=== PATIENT | female | born 1945 | race African-American/Black ===

== ENCOUNTER 2020-02-15 05:54 | Day surgery (SDC) | payer MEDICARE, OTHER ==
--- NOTE | 2020-02-12 13:00 | Pre-op HX & Phy Repo 2 SIG ---
DATE OF ADMISSION: 02/15/2020 PREOPERATIVE DIAGNOSIS: Macular hole , Stage IV, left eye. BRIEF NOTE: This is a first [facility] ophthalmology admission for the patient, who is a pleasant 74-year-old lady, who complained of blurred vision in the left eye since December and was found to have a stage IV macular hole. PAST OCULAR HISTORY: Remarkable for mild cataracts, but no prior surgery. MEDICAL HISTORY: Remarkable for hypertension and arthritis. MEDICATIONS: She is on metformin and losartan. There was a suspicion of prediabetes. FAMILY HISTORY: Positive for hypertension and diabetes. SOCIAL HISTORY: She does not smoke or drink. ALLERGIES: She is allergic to codeine. PHYSICAL EXAMINATION: Best vision at the time of admission was 20/25 in the right eye. Counting fingers at 6 feet in the left with pressures of 12 bilaterally. The anterior segments showed early nuclear cataracts. Fundus examination of the right eye showed a few macular drusen, but the retina was all attached. The left fundus showed a stage IV macular hole as well as scattered drusen. Diagnostic studies revealed the stage IV macular hole. ASSESSMENT: Stage IV macular hole, left eye. PLAN: The plan is to perform a pars plana vitrectomy with ICG-assisted membrane peeling, possible endolaser, and gas fluid exchange. The risks and benefits of surgery were gone over with the patient with potential for infection, cataract formation, hemorrhage, retinal detachment, failure of the macular hole to close, remote possibility of loss of the eye. The risk of anesthesia was discussed. The patient understands and consents to the surgery, which will be performed on Saturday. Shantanu Fisher M.D. DR: ARISTIDES JOB#: [id number] CC: PILLO
[2020-02-15] VITALS (11 sets, daily range): BP systolic 144–179; BP diastolic 66–88
[~2020-02-15] VITALS: Ht 160 cm; Wt 113.4 kg
[2020-02-15] MEDS ORDERED: prednisoLONE acetate 1% Opth Susp 1ml LEFT EYE ONE (06:00)
[2020-02-15] MEDS: Phenylephrine 2.5% Op 2ml Soln LEFT EYE SCH ×3 (06:17→06:34)
[2020-02-15] MEDS: Flurbiprofen 0.03% Opth Sol 2.5ml LEFT EYE SCH ×3 (06:17→06:34)
[2020-02-15] MEDS: Vigamox Opth Soln 3ml LEFT EYE SCH ×3 (06:17→06:34)
[2020-02-15] MEDS: Cyclopentolate 1% Opth Sol 2ml LEFT EYE SCH ×3 (06:18→06:34)
[2020-02-15] MEDS ORDERED: LOSARTAN POTASS50 MG ORAL (06:37)
[2020-02-15] MEDS ORDERED: EPINEPHrine 1mg/1ml Amp ONE (07:08)
[2020-02-15] MEDS ORDERED: Kenalog-10 5ml Inj ONE (07:09)
[2020-02-15] MEDS ORDERED: BSS 15ml BTL ONE (07:09)
[2020-02-15] MEDS ORDERED: Kenalog-40 1ml Vial ONE (07:09)
[2020-02-15] MEDS ORDERED: Maxitrol Opth Oint 3.5gm ONE (07:09)
[2020-02-15] MEDS ORDERED: BSS 500ml btl ONE (07:09)
[2020-02-15] MEDS ORDERED: Lidocaine 2% MPF 5ml Vial INJ ONE (07:09)
[2020-02-15] MEDS ORDERED: prednisoLONE acetate 1% Opth Susp 1ml ONE (07:09)
[2020-02-15] MEDS ORDERED: Sodium Hyaluronate 10 mg/ml 0.85ml ONE (07:10)
[2020-02-15] MEDS ORDERED: Tetracaine 0.5% Opth 4ml Soln ONE (07:10)
[2020-02-15] MEDS ORDERED: Povidone-Iodine 5% opth solution ONE (07:10)
[2020-02-15] MEDS ORDERED: Bupivacaine 0.75% 30ml vial INJ ONE (07:10)
[2020-02-15] MEDS ORDERED: Lidocaine 1% MPF 10mg/ml 5ml ONE (07:11)
[2020-02-15] MEDS ORDERED: Meperidine 25mg/1ml Inj (FOR RIGORS ONLY) IV PRN (07:15)
[2020-02-15] MEDS ORDERED: LORazepam Inj 2mg/ml 1ml IV PRN (07:15)
[2020-02-15] MEDS ORDERED: fentaNYL 100 mcg/2 mL IV PRN (07:15)
[2020-02-15] MEDS ORDERED: Ketorolac 30mg Inj IV PRN ×2 (07:15)
[2020-02-15] MEDS ORDERED: LR 1000ml 1,000 ML IVLG SCH (07:15)
[2020-02-15] MEDS ORDERED: Midazolam 2mg/2ml Inj IVP PRN (07:15)
[2020-02-15] MEDS ORDERED: Metoclopramide 10mg/2ml Inj IVP PRN (07:15)
[2020-02-15] MEDS ORDERED: Atropine Sulfate 0.4mg/ml inj IVP PRN (07:15)
[2020-02-15] MEDS ORDERED: DiphenhydrAMINE 50mg/ml Inj IVP PRN (07:15)
[2020-02-15] MEDS ORDERED: Labetalol 5mg/ml 20ml vial IV PRN (07:15)
[2020-02-15] MEDS ORDERED: LR 1000ml ONE (07:19)
[2020-02-15] MEDS ORDERED: Hyaluronidase 150 units/ml vial ONE (07:22)
--- NOTE | 2020-02-15 07:26 | Anethesia Preoperative Eval ---
Anesthesia Pre-op PMH/ROS General Date of Evaluation: Feb 15, 2020 Time of Evaluation: 07:19 Anesthesiologist: Sacha ASA Score: ASA 3 Mallampati Score Class I : Soft palate, uvula, fauces, pillars visible Class II: Soft palate, uvula, fauces visible Class III: Soft palate, base of uvula visible Class IV: Only hard plate visible Mallampati Classification: Class III Surgeon: Phillip Diagnosis: L Eye Mcular Hole Surgical Procedure: L Vitrectomy Anesthesia History: none Family History: no anesthesia problems Allergies: Coded Allergies: CODEINE (Verified Allergy, Unknown, 02/12/20) Medications: see eMAR Patient NPO?: Yes Past Medical History Cardiovascular: Reports: HTN Gastrointestinal/Genitourinary: Reports: GERD HEENT: Reports: cataract (L), cataract (R) Other: obesity - orbid BMI 46 Anesthesia Pre-op Phys. Exam Physician Exam Last Vital Signs Date Time Temp Pulse Resp B/P (MAP) Pulse Ox O2 Delivery O2 Flow Rate FiO2 02/15/20 06:23 Room Air 02/15/20 06:23 96.6 77 18 179/75 100 Constitutional: NAD Neurologic: CN 2-12 intact Cardiovascular: RRR Respiratory: CTA Gastrointestinal: S/NT/ND Airway Exam Mallampati Score: Class III MO: limited ROM: limited Teeth: missing, intact Anesthesia Pre-op A/P Risk Assessment & Plan Assessment: ASA 3 Plan: GA SED Status Change Before Surgery: No Jesus Goncalves MD Feb 15, 2020 07:26
--- NOTE | 2020-02-15 07:33 | Pre-Procedure Note/Attestation ---
Pre-Procedure Note/Attestation Complete Prior to Procedure Planned Procedure: left Procedure Narrative: PPV, ICG assisted membrane peel, endolaser, gas-fluid exchange LEFT eye Indications for Procedure Pre-Operative Diagnosis: Stage IV macular hole LEFT eye Attestation I attest that I discussed the nature of the procedure; its benefits; risks and complications; and alternatives (and the risks and benefits of such alternatives), prior to the procedure, with the patient (or the patient's legal eligibility services representative). I attest that, if there was a reasonable possibility of needing a blood transfusion, the patient (or the patient's legal eligibility services representative) was given the [facility] standardized written summary, pursuant to the [place] Blood Safety Act ([place] Health and Safety Code # 1645, as amended). I attest that I re-evaluated the patient just prior to the surgery and that there has been no change in the patient's H&P, except as documented below: Shantanu Fisher MD Feb 15, 2020 07:33
[2020-02-15] MEDS ORDERED: Indocyanine Green 25mg Inj INJ ONE (07:45)
[2020-02-15] MEDS ORDERED: Ketorolac 30mg Inj IV ONE (07:45)
--- NOTE | 2020-02-15 08:16 | Immediate Post-Op Evaluation ---
Immediate Post-Op Evalulation Immediate Post-Op Evalulation Procedure: L Vitrectomy Date of Evaluation: Feb 15, 2020 Time of Evaluation: 09:17 IV Fluids: 500 LR Blood Products: 0 Estimated Blood Loss: 25 Urinary Output: 0 Blood Pressure Systolic: 151 Blood Pressure Diastolic: 77 Pulse Rate: 85 Respiratory Rate: 16 O2 Sat by Pulse Oximetry: 100 Temperature (Fahrenheit): 97.1 Pain Score (1-10): 1 Nausea: No Vomiting: No Complications 0 Patient Status: awake, reacts, patent, none Hydration Status: adequate Jesus Goncalves MD Feb 15, 2020 08:16
--- NOTE | 2020-02-15 08:16 | 48 Hour Post Anesthesia Eval ---
Post Anesthesia Evaluation Procedure: L Vitrectomy Date of Evaluation: Feb 15, 2020 Time of Evaluation: 11:23 Blood Pressure Systolic: 163 0: 91 Pulse Rate: 67 Respiratory Rate: 18 Temperature (Fahrenheit): 98 O2 Sat by Pulse Oximetry: 100 Airway: patent Nausea: No Vomiting: No Pain Intensity: 1 Hydration Status: adequate Cardiopulmonary Status: Stable Mental Status/LOC: patient returned to baseline Follow-up Care/Observations: 0 Post-Anesthesia Complications: 0 Follow-up care needed: ready to discharge Jesus Goncalves MD Feb 15, 2020 08:16
--- NOTE | 2020-02-15 09:06 | Brief Operative Note ---
Immediate Post Operative Note Operative Note Chief Complaint: Blurred central vision LEFT eye Pre-op Diagnosis: Stage IV macular hole LEFT eye Procedure: PPV, ICG assisted membrane peel, Gas-Fluid exchange OS 24% SF-6 Post-op Diagnosis: same as pre-op Surgeon: Phillip Anesthesiologist: Sacha Anesthesia: general Specimen: none Complications: none Condition: stable Fluids: Per anesthesia Estimated Blood Loss: none Drains: none Implant(s) used?: No Shantanu Fisher MD Feb 15, 2020 09:06
--- NOTE | 2020-02-15 09:45 | Operative Note - Dictated ---
DATE OF OPERATION: 02/15/2020 PREOPERATIVE DIAGNOSIS: Stage IV macular hole, left eye. POSTOPERATIVE DIAGNOSIS: Stage IV macular hole, left eye. PROCEDURES: 1. Pars plana vitrectomy. 2. ICG-assisted membrane peel. 3. Gas fluid exchange, left eye. SURGEON: Shantanu Fisher MD ANALYTICAL CHEMIST: None. ANESTHESIA: LMA general. ANESTHESIOLOGIST: Jesus Goncalves MD JUSTIFICATION FOR SURGERY: This 74-year-old lady developed decreased vision in the left eye, was found to have a stage IV macular hole. BRIEF NOTE: The patient brought to the operating room, placed on OR table in supine position. After a time-out was performed and agreed upon by the staff, general LMA anesthesia was induced by Dr. Goncalves. A limited retrobulbar block of 4 mL was given to limit intraoperative anesthetic and postoperative pain. The patient was then prepped and draped in normal manner. A lid speculum was inserted into the left eye. Using a 23-gauge trocar system, cannulas were placed in all except infranasal quadrant. Infusion secured inferotemporally. Vitrectomy was begun posterior to the lens taking care to avoid contact. A central core vitrectomy was done followed by peripheral vitrectomy leaving a small vitreous skirt. The posterior hyaloid was engaged just temporal to the optic nerve and elevated. This was also removed leaving a clean posterior pole. The periphery was checked. No peripheral breaks, tears, detachments were seen. ICG dye, 3 drops were used to stain the internal limiting lamina. Using intraocular forceps and a macular lens, the ILM was engaged superior to the macula. A John conservation biology professor was used to expose the edges and the forceps were then used to remove a portion of the ILM roughly 3 disc diameters in size. No problems were encountered. The macula was relieved in all traction. An air-fluid exchange was then performed followed by a gas-gas exchange of 24% SF6. The eye was left normotensive as the sclerotomies were each closed with 8-0 Vicryl suture using a surgeons knot. Subconjunctival Decadron and gentamicin were then injected and topical prednisolone drops, atropine drops, ofloxacin drops, and Maxitrol ointment were instilled. The eye was patched and shielded. The patient taken to recovery in excellent condition. There were no complications. Shantanu Fisher M.D. DR: FELISA JOB#: [id number] CC: Shantanu Fisher M.D.; Fax#: [phone]
== END 2020-02-15 10:40 | disposition home or self-care (01) ==
LOC: SUR 05:54
DX: H35.342 Macular cyst, hole, or pseudohole, left eye (principal); I10 Essential (primary) hypertension; M19.90 Unspecified osteoarthritis, unspecified site; Z79.84 Long term (current) use of oral hypoglycemic drugs; Z88.6 Allergy status to analgesic agent; H26.9 Unspecified cataract; K21.9 Gastro-esophageal reflux disease without esophagitis; E66.9 Obesity, unspecified; Z68.41 Body mass index [BMI] 40.0-44.9, adult
CPT/HCPCS: 67042; 94003; J0171; J1100; J2250; J2405; J2704; J3470; J3490; J7120; U0002; 94150; J2180